=== PATIENT | male | born 1975 | race Two or more races ===

== ENCOUNTER 2022-06-29 22:38 | Emergency (ER) | payer MEDICAID ==
[~2022-06-29] VITALS: Ht 182.9 cm; Wt 104.5 kg
[2022-06-29 23:22] VITALS: BP 141/89
== END 2022-06-30 02:14 | disposition home or self-care (01) ==
LOC: EDBD 22:38 → ER 22:38
DX: R04.0 Epistaxis (principal); E11.22 Type 2 diabetes mellitus with diabetic chronic kidney disease; N18.6 End stage renal disease; Z99.2 Dependence on renal dialysis